=== PATIENT | male | born 1950 | race Caucasian/White ===

== ENCOUNTER 2017-11-18 10:09 | Day surgery (SDC) | payer OTHER ==
[2017-11-17 10:34] VITALS: BMI 27.8
[2017-11-18 12:07] VITALS: TEMP 98
[2017-11-18 13:49] VITALS: BP 127/61; PULSE 66
--- NOTE | 2017-11-21 17:17 | PATH ---
Surgical Pathology Report Patient Name: SACHA HART [facility]. Rec. #: [id number] /Age/Gender: 1950 (Age: 67) / M Account: [id number] Location: U-ENDOSCOPY Taken: 11/18/2017 Received: 11/18/2017 Reported: 11/21/2017 Physicians: Yassine Alexandra M.D. Specimen(s) Received A: RECTAL POLYP B: BX DESCENDING COLON POLYP C: BX PROXIMAL RIGHT COLON Clinical History Polyp surveillance Postoperative diagnosis: Colon polyps Final Diagnosis A. RECTUM, POLYPS, POLYPECTOMY: HYPERPLASTIC POLYP(S). B. DESCENDING COLON, POLYP, POLYPECTOMY: HYPERPLASTIC POLYP. C. PROXIMAL COLON, RIGHT, BIOPSY: TUBULAR ADENOMA. Electronically Signed Lilia Gastelum M.D. Gross Description A. Received in formalin, labeled "rectal polyps" are 3 hernandez, irregular portions of soft tissue measuring 0.1 cm. in greatest dimension. The specimens are submitted in toto in one cassette. B. Received in formalin, labeled "descending colon polyp" is a hernandez, irregular portion of soft tissue measuring 0.1 cm. in greatest dimension. The specimen is submitted in toto in one cassette. C. Received in formalin, labeled "proximal right colon" is a hernandez, irregular portion of soft tissue measuring 0.3 cm. in greatest dimension. The specimen is submitted in toto in one cassette. MLSZ/11/18/2017 sanml/11/18/2017
== END 2017-11-18 13:30 | disposition home or self-care (01) ==
LOC: JASU-ENDO 10:09
PROVIDERS: ATTEND Internal Medicine Gastroenterology
PROC: 0DBM8ZX Excision of Descending Colon, Via Natural or Artificial Opening Endoscopic, Diagnostic (ICD-10-PCS; 2017-11-18)
PROC: 0DBP8ZX Excision of Rectum, Via Natural or Artificial Opening Endoscopic, Diagnostic (ICD-10-PCS; 2017-11-18)
PROC: 0DBK8ZX Excision of Ascending Colon, Via Natural or Artificial Opening Endoscopic, Diagnostic (ICD-10-PCS; principal; 2017-11-18 11:00)
DX: Z86.010 Personal history of colon polyps (principal); K62.1 Rectal polyp; K63.5 Polyp of colon; K64.8 Other hemorrhoids; K57.30 Diverticulosis of large intestine without perforation or abscess without bleeding
CPT/HCPCS: 88305-TC

== ENCOUNTER 2022-12-08 05:00 | Day surgery (SDC) | payer OTHER ==
[2022-12-06 11:49] VITALS: BMI 28.0
[2022-12-08 09:22] VITALS: TEMP 98.3
[2022-12-08 09:30] VITALS: RESP 18
[2022-12-08 09:57] VITALS: BP 153/80; PULSE 78
== END 2022-12-08 10:11 | disposition home or self-care (01) ==
LOC: JASU-ENDO 05:00
PROVIDERS: ATTEND Internal Medicine Gastroenterology
PROC: 0DBN8ZX Excision of Sigmoid Colon, Via Natural or Artificial Opening Endoscopic, Diagnostic (ICD-10-PCS; principal; 2022-12-08 09:00)
DX: Z12.11 Encounter for screening for malignant neoplasm of colon (principal); K63.5 Polyp of colon; K57.30 Diverticulosis of large intestine without perforation or abscess without bleeding; K64.8 Other hemorrhoids; Z86.010 Personal history of colon polyps; I10 Essential (primary) hypertension